=== PATIENT | male | born 1995 | race Caucasian/White ===

== ENCOUNTER 2019-11-21 10:38 | Outpatient (CLI) | payer BC ==
--- NOTE | 2019-11-21 11:46 | XRAY Report ---
PROCEDURE: Thoracic Spine 2 View INDICATIONS: LOW BACK PAIN W/R SCIATICA TECHNIQUE: 3 views of the thoracic spine were acquired. COMPARISON: None. FINDINGS: Bones: No fractures or dislocations. No suspicious bony lesions. 12 pairs of ribs are noted, and a ppear intact where visualized. Soft tissues: No paravertebral stripe thickening. IMPRESSION: Unremarkable radiographic examination of thoracic spine. Reviewed by: Johan Gordon MD on 11/21/2019 11:44 AM PDT Approved by: Johan Gordon MD on 11/21/2019 11:44 AM PDT Station ID: [id number]
--- NOTE | 2019-11-21 11:48 | XRAY Report ---
PROCEDURE: Lumbar Spine 2 View INDICATIONS: LOW BACK PAIN W/R SCIATICA TECHNIQUE: 2 views of the lumbar spine were acquired. COMPARISON: None. FINDINGS: Bones: 5 [id number] vertebrae are present. There is mild levocurvature, otherwise normal bony alignment. No vertebral body compression fractures. No suspicious bony lesions. Soft tissues: Overlying bowel gas pattern is normal. No suspicious soft tissue calcifications. IMPRESSION: Mild levocurvature. Otherwise normal spine. Reviewed by: Carmen Restrepo MD on 11/21/2019 11:47 AM PDT Approved by: Carmen Restrepo MD on 11/21/2019 11:47 AM PDT Station ID: [id number]
== END 2019-11-21 10:39 | disposition home or self-care (01) ==
LOC: DI 10:38
PROVIDERS: ATTEND Physician Assistant Medical
DX: M54.41 Lumbago with sciatica, right side (principal)
CPT/HCPCS: 72070; 72100